=== PATIENT | female | born 1995 | race Caucasian/White ===

== ENCOUNTER 2017-05-07 21:31 | Emergency (ER) | payer OTHER ==
[2017-05-07 21:41] VITALS: BP 106/64
[2017-05-07] MEDS ORDERED: Phenazopyridine TAB* 100 MG PO ONE ×2 (22:35→22:37)
--- NOTE | 2017-05-09 19:33 | UC ---
Emiliano Pinto Nikita, scribed for Michelle Hall DO on 05/07/17 at 2226 . Complaint Female HPI - HPI Summary HPI Summary: This patient is a 22 year old F presenting to [facility] with a chief complaint of dysuria since 2 days ago. The patient rates the pain 4/10 in severity. Symptoms aggravated by nothing. Symptoms alleviated by nothing. Patient reports fever ( 100.4, last night and today), white vaginal discharge, decreased appetite, nausea, and vaginal erythema. Patient denies vomiting, abdominal pain, back pain , CP, SOB, ear ache, eye drainage, cough, rash, and vaginal sores. Pt went to [facility] who said she has an STD. Pt oracio to [facility] who says she has a UTI. Pt was given Rxs for Nitrofurantoin and Acyclovir. Pt has taken one dose of Acyclovir and two pills of the Nitrofurantoin today. - History Of Current Complaint Chief Complaint: UCGU Stated Complaint: BURNING PAIN URINATING,FEVER Hx Obtained From: Patient Hx Last Menstrual Period: 1 MONTH AGO Onset/Duration: Sudden Onset, Lasting Days - 2 days ago, Still Present Timing: Constant Severity Initially: Moderate Severity Currently: Moderate Pain Intensity: 4 Pain Scale Used: 0-10 Numeric Aggravating Factor(s): Nothing Alleviating Factor(s): Nothing Associated Signs And Symptoms: Positive: Vaginal Discharge - Patient reports fever (100.4, last night and today), white vaginal discharge, decreased appetite , nausea, and vaginal erythema. Patient denies vomiting, abdominal pain, back pain, CP, SOB, ear ache, eye drainage, cough, rash, and vaginal sores. - Allergies/Home Medications Allergies/Adverse Reactions: Allergies Allergy/AdvReac Type Severity Reaction Status Date / Time Cephalosporins Allergy Severe Rash Verified 05/07/17 21:41 Penicillins Allergy Severe Rash Verified 05/07/17 21:41 Sulfa Antibiotics Allergy Severe Rash Verified 05/07/17 21:41 Home Medications: Home Medications Nitrofurantoin Macrocrystals* [Macrodantin*] 100 mg PO 05/07/17 [History] PMH/Surg Hx/FS Hx/Imm Hx Endocrine History: Other Other Endocrine History: No DM Cardiovascular History: Other Other Cardiovascular History: No CAD, HTN - Surgical History Surgical History: None - Family History Known Family History: Negative: Cardiac Disease, Hypertension, Diabetes - Social History Alcohol Use: Occasionally Substance Use Type: None Smoking Status (MU): Never Smoked Tobacco Review of Systems Constitutional: Fever Eyes: Negative ENT: Negative Respiratory: Negative Cardiovascular: Negative Gastrointestinal: Nausea, Other - decreased appetite; denies vomiting, abdominal pain Genitourinary: Vaginal/Penile Discharge - white vaginal discharge, Other - vaginal erythema; denies vaginal sores Musculoskeletal: Other: - denies back pain All Other Systems Reviewed And Are Negative: Yes Physical Exam Triage Information Reviewed: Yes Appearance: Well-Appearing, No Pain Distress, Well-Nourished Vital Signs: Initial Vital Signs Temp 100.1 F 05/07/17 21:35 Pulse 94 05/07/17 21:35 Resp 16 05/07/17 21:35 BP 106/64 05/07/17 21:35 Pulse Ox 100 05/07/17 21:35 Vital Signs Reviewed: Yes Eyes: Positive: Conjunctiva Clear. Negative: Discharge ENT: Positive: Hearing grossly normal. Negative: Muffled/hoarse voice Neck exam: Normal Neck: Positive: Supple Respiratory: Positive: Lungs clear, Normal breath sounds, No respiratory distress, No accessory muscle use Cardiovascular: Positive: RRR, No Murmur Abdomen Description: Positive: Soft, Other: - suprapubic tenderness Musculoskeletal Exam: Normal Neurological: Positive: Alert, Muscle Tone Normal Psychological Exam: Normal Psychological: Positive: Age Appropriate Behavior Skin Exam: Normal, Other - Warm, Dry, Normal color Complaint Female Dx - Course Course Of Treatment: This patient is a 22 year old F presenting to [facility] with a chief complaint of dysuria since 2 days ago. The patient rates the pain 4/10 in severity. Symptoms aggravated by nothing. Symptoms alleviated by nothing. Patient reports fever (100.4, last night and today), white vaginal discharge, decreased appetite, nausea, and vaginal erythema. Patient denies vomiting, abdominal pain, back pain, CP, SOB, ear ache, eye drainage, cough, rash, and vaginal sores. Medications reviewed this visit. Pt will be discharged. Pt is agreeable with this plan. - Differential Dx/Diagnosis Provider Diagnoses: uti Discharge - Discharge Plan Condition: Stable Disposition: HOME Patient Education Materials: Phenazopyridine (By mouth), Urinary Tract Infection in Women (ED) [facility] - If Needed Additional Instructions: NITROFURANTOIN: You have received a prescription for nitrofurantoin (Macrodantin). This antibiotic is used for urinary tract infections. Persons with G-6-PD (glucose 6-phosphate dehydrogenase) deficiency should not take this medication. Women who are or nursing should notify the physician before taking this medicine. If you have ever had a problem caused by this medication in the past, be sure the physician is aware of it. Common side effects of this medicine include nausea, vomiting, or decreased appetite. Notify your physician if these side effects become severe. Immediately stop this medicine and call the physician if you develop cough , shortness of breath, chest pain, weakness, jaundice (yellow color of the skin and whites of the eyes), or a skin rash. ANYTIME YOU TAKE AN ANTIBIOTIC, IT IS IMPORTANT TO REPLENISH THE BODY'S SUPPLY OF "GOOD BACTERIA." YOU CAN GET GOOD BACTERIA FROM HIGH QUALITY CULTURED FOODS SUCH LOCAL YOGURT, SOUR KRAUT, OLIVER PALOMO, NATURALLY FERMENTED PICKLES AND PROBIOTIC DRINKS. YOU CAN ALSO GET GOOD BACTERIA FROM A PROBIOTIC SUPPLEMENT. We are the third provider to see you today. At [place] you were diagnosed with genital herpes and started on Acyclovir. Then at [facility] you were diagnosed with a urinary tract infection and given macrobid. You came here tonight because you were confused with all that had transpired in the day. We did another urinalysis here. There is strong evidence of urinary tract infection in your urine. So we are recommending that you continue the Nitrofurantoin that you were started on at [facility]. We will send your urine for culture. That will confirm the dx of urinary tract infection and verify that the antibiotics that you are taking will be effective against the organism that is causing your infection. It takes two days for the urine culture results to become available. It usually takes about 2 days for the antibiotics to start to work. In the meantime, to help with the discomfort, we gave you a prescription for pyridium. You must take the Nitro along with the pyridium. If you are not improving in two days after the pyridium runs out, you should return for re-evaluation. If your symptoms are worsening over the next 2 days or if you develop new symptoms such as back pain, abdominal pain, or vomiting, you should return here or go to the emergency department immediately. You are skeptical about the dx of genital herpes. We have offered to repeat the pelvic exam here to see if we see evidence of genital herpes. You have declined to have that exam done again today. So we are recommending that you continue Acyclovir. Here we are only giving you a dx of urinary tract infection because we have evidence of that and we did not see the genital herpes. That doesnt mean you dont have it. We will call you and check on you in 2 days. Remember to pee every time after you have sex. The documentation as recorded by the Emiliano hagen Nikita accurately reflects the service I personally performed and the decisions made by me, Michlele Hall DO.
== END 2017-05-07 23:03 | disposition home or self-care (01) ==
LOC: UCEAST 21:31
DX: N39.0 Urinary tract infection, site not specified (principal); Z32.02 Encounter for pregnancy test, result negative; Z88.0 Allergy status to penicillin; Z88.2 Allergy status to sulfonamides
CPT/HCPCS: 81003; 84702; 87086; 99202; A9270-GY; G0463

== ENCOUNTER 2017-08-29 14:51 | Emergency (ER) | payer OTHER ==
[2017-08-29 17:05] VITALS: BP 100/58
--- NOTE | 2017-08-29 17:27 | UC ---
Respiratory Complaint HPI - HPI Summary HPI Summary: had flu about 10 days ago treated with tamiflu---has continued rib pain with cough, no fever/sputum or sob - History of Current Complaint Chief Complaint: UCRespiratory Stated Complaint: RIB PAIN,COUGH Time Seen by Provider: 08/29/17 17:22 Hx Obtained From: Patient Hx Last Menstrual Period: 08/22/17 ?: No Onset/Duration: Sudden Onset Timing: Constant Severity Initially: Moderate Severity Currently: Moderate Pain Intensity: 7 Pain Scale Used: 0-10 Numeric Character: Cough: Nonproductive Aggravating Factors: Nothing Alleviating Factors: Nothing Associated Signs And Symptoms: Positive: Pleuritic Chest Pain, URI - Allergies/Home Medications Allergies/Adverse Reactions: Allergies Allergy/AdvReac Type Severity Reaction Status Date / Time MS Cephalosporins Allergy Severe Rash Verified 08/29/17 17:05 [Cephalosporins] MS Penicillins [Penicillins] Allergy Severe Rash Verified 08/29/17 17:05 MS Sulfa Antibiotics Allergy Severe Rash Verified 08/29/17 17:05 [Sulfa Antibiotics] PMH/Surg Hx/FS Hx/Imm Hx Previously Healthy: Yes - Surgical History Surgical History: None - Family History Known Family History: Positive: None - Social History Occupation: Student Lives: With Family Alcohol Use: Occasionally Substance Use Type: None Smoking Status (MU): Never Smoked Tobacco Review of Systems Constitutional: Negative Skin: Negative Eyes: Negative ENT: Negative Respiratory: Cough Cardiovascular: Negative Gastrointestinal: Negative Genitourinary: Negative Motor: Negative Neurovascular: Negative Musculoskeletal: Negative Neurological: Negative Psychological: Negative Is Patient Immunocompromised?: No All Other Systems Reviewed And Are Negative: Yes Physical Exam Triage Information Reviewed: Yes Appearance: Well-Appearing, No Pain Distress, Well-Nourished Vital Signs: Initial Vital Signs Temp 98.5 F 08/29/17 17:02 Pulse 73 08/29/17 17:02 Resp 16 08/29/17 17:02 BP 100/58 08/29/17 17:02 Pulse Ox 98 08/29/17 17:02 Vital Signs Reviewed: Yes Eye Exam: Normal Eyes: Positive: Conjunctiva Clear ENT Exam: Normal ENT: Positive: Normal ENT inspection, Hearing grossly normal, Pharynx normal, TMs normal, Uvula midline. Negative: Nasal congestion, Tonsillar swelling, Tonsillar exudate, Trismus, Muffled voice, Hoarse voice, Dental tenderness, Sinus tenderness Dental Exam: Normal Neck exam: Normal Neck: Positive: Supple, Nontender, No Lymphadenopathy Respiratory Exam: Normal Respiratory: Positive: Chest non-tender, Lungs clear, Normal breath sounds, No respiratory distress, No accessory muscle use Cardiovascular Exam: Normal Cardiovascular: Positive: RRR, No Murmur, Pulses Normal, Brisk Capillary Refill Musculoskeletal Exam: Normal Musculoskeletal: Positive: Strength Intact, ROM Intact, No Edema Neurological Exam: Normal Neurological: Positive: Alert, Muscle Tone Normal Psychological Exam: Normal Skin Exam: Normal UC Diagnostic Evaluation - Laboratory O2 Sat by Pulse Oximetry: 98 Respiratory Course/Dx - Course Course Of Treatment: prednisone, albuterol, tessalon, increase fluids, follow with pcp - Differential Dx/Diagnosis Provider Diagnoses: Post Viral Cough Discharge - Discharge Plan Condition: Stable Disposition: HOME Prescriptions: Benzonatate CAP* [Tessalon 100 MG CAP*] 100 mg PO TID PRN #30 cap PRN Reason: cough Patient Education Materials: Guaifenesin (By mouth), Bronchospasm (ED) [facility] - If Needed
[2017-08-29] MEDS ORDERED: Albuterol HFA INHALER* 8 gm MDI INH ONE (17:28)
[2017-08-29] MEDS ORDERED: Benzonatate CAP* 100 MG PO ONE (17:29)
[2017-08-29] MEDS ORDERED: predniSONE TAB* 20 MG PO ONE (17:30)
== END 2017-08-29 17:49 | disposition home or self-care (01) ==
LOC: UCEAST 14:51
DX: R05 Cough (principal); R07.81 Pleurodynia; Z88.1 Allergy status to other antibiotic agents; Z88.0 Allergy status to penicillin; Z88.2 Allergy status to sulfonamides
CPT/HCPCS: 99213; A9270-GY; G0463; J7512